=== PATIENT | female | born 1980 | race Caucasian/White ===

== ENCOUNTER → 2018-08-19 | Outpatient (CLI) | payer OTHER ==
--- NOTE | 2018-08-19 15:58 | XR ---
EXAMINATION TYPE: XR lumbar spine 2 or 3V DATE OF EXAM: 08/19/2018 CLINICAL HISTORY: pain TECHNIQUE: Three views of the lumbar spine are submitted. COMPARISON: None. FINDINGS: There are 5 lumbar type vertebral bodies identified. The lumbar spine shows satisfactory alignment w ithout evidence of acute fracture or dislocation. Vertebral body heights are within normal limits. Mild degenerative changes noted. The overlying soft tissue appears unremarkable. IMPRESSION: No acute fracture or dislocation is seen in the lumbar spine. ICD 10 NO FRACTURE, INITIAL EVALUATION
--- NOTE | 2018-08-19 15:58 | XR ---
EXAMINATION TYPE: XR knee complete LT DATE OF EXAM: 08/19/2018 CLINICAL HISTORY: pain TECHNIQUE: Three views of the left knee are obtained. COMPARISON: None. FINDINGS: There is no acute fracture/dislocation. The tri-compartment joint spaces appear within no rmal limits. The overlying soft tissue appears unremarkable. IMPRESSION: There is no acute fracture or dislocation ICD 10 NO FRACTURE, INITIAL EVALUATION
--- NOTE | 2018-08-19 16:02 | XR ---
EXAMINATION TYPE: XR wrist complete 4 views RT, XR hand complete 3 views RT DATE OF EXAM: 08/19/2018 COMPARISON: NONE HISTORY: 38-year-old female with pain after fall today FINDINGS: Wrist: There is a fracture through the proximal third aspect of the scaphoid waist. Fracture margins have a slightly sclerotic appearance. However, there is soft tissue swelling. No fragmentation of the proxim al pole. The distal radioulnar and radiocarpal joints appear intact. There is a 2 to 3 mm loose body or chronic ununited fracture fragment along the dorsum of the carpus. Hand: Joint spaces within the hand are maintained. No acute fracture, subluxation, or dislocation. IMPRESSION: 1. Wrist: Soft tissue swelling with suspected subacute transverse fracture through the proximal third scaphoid waist. Slight sclerosis along the fracture margins suggests a more subacute rather than acu te injury. Further clinical correlation is recommended. No evidence for proximal pole AVN. Also, smal l 2 to 3 mm loose body or chronic ununited fracture fragment along the dorsum of the carpus. 2. Pain: No acute osseous abnormality seen.
--- NOTE | 2018-08-19 16:11 | XR ---
Cervical spine HISTORY: Trauma and pain 5 views of the cervical spine No significant foraminal encroachment is present. Cervical vertebral bodies show preserved height, al ignment, and bone mineralization. Loss of disc height present at C4-5, C5-6 and C6-7, C7-T1, there is associated spondylosis at C5-6 and C6-7. Prevertebral soft tissues are normal. IMPRESSION: Degenerative disc disease. No acute fracture or subluxation.
== END | disposition home or self-care (01) ==
LOC: LABWHC1 14:44
PROVIDERS: ATTEND Emergency Medicine
DX: M50.321 Other cervical disc degeneration at C4-C5 level (principal); M79.89 Other specified soft tissue disorders; S63.501A Unspecified sprain of right wrist, initial encounter; S33.5XXA Sprain of ligaments of lumbar spine, initial encounter; S13.4XXA Sprain of ligaments of cervical spine, initial encounter
CPT/HCPCS: 72050; 72100; 81025